=== PATIENT | female | born 1965 | race Hispanic/Latino ===

== ENCOUNTER 2016-11-08 08:39 | Emergency (ER) | payer OTHER ==
[2016-11-08 08:48] VITALS: BP 157/102; PULSE 109; TEMP 97; O2SAT 99
[2016-11-08 08:49] VITALS: BMI 22.6
[2016-11-08] MEDS ORDERED: Sodium Chloride 0.9% 1,000 ML IV STA (09:13)
--- NOTE | 2016-11-08 09:26 | ED PDOC ---
Hyperglycemia/Hypoglycemia Time Seen by Provider: 11/08/16 09:08 Chief Complaint (Nursing): High Blood Sugar Chief Complaint (Provider): High Blood Sugar History Per: Patient History/Exam Limitations: no limitations Onset/Duration Of Symptoms: Hrs (prior to arrival) Current Symptoms Are (Timing): Still Present : The patient does not have any of the infectious symptoms listed except for those marked. Additional Complaint(s): 51 y/o female presents to the emergency department after sent from the same day prior to having colonoscopy which was not completed because patient had elevated blood sugar. Patient is asymptomatic. Denies nausea, vomiting, or dizziness. PMD: Dr. Aurelio Armstrong MD Past Medical History Reviewed: Historical Data, Nursing Documentation, Vital Signs Vital Signs: Last Vital Signs Temp 97 F L 11/08/16 08:47 Pulse 109 H 11/08/16 08:47 Resp BP 157/102 H 11/08/16 08:47 Pulse Ox 99 11/08/16 08:47 - Medical History PMH: Back Problems (DJD), Diabetes - Surgical History Surgical History: - Family History Family History: States: Unknown Family Hx - Social History Current smoker - smoking cessation education provided: No Alcohol: None Drugs: Denies - Immunization History Hx Tetanus Toxoid Vaccination: No Hx Influenza Vaccination: No Hx Pneumococcal Vaccination: No - Home Medications Home Medications: Ambulatory Orders Medication Instructions Recorded Glipizide 10 mg PO DAILY 03/01/15 Pioglitazone HCl 45 mg PO DAILY 03/01/15 Metformin Hydrochloride/Prabha 1 tab PO BID 03/17/15 [Janumet 1000 mg-50 mg] Pregabalin [Lyrica] 50 mg PO BID 03/17/15 - Allergies Allergies/Adverse Reactions: Allergies Allergy/AdvReac Type Severity Reaction Status Date / Time No Known Allergies Allergy Verified 04/24/15 09:36 Review of Systems ROS Statement: Except As Marked, All Systems Reviewed And Found Negative Constitutional: Positive for: Other (Asymptomatic) Gastrointestinal: Negative for: Nausea, Vomiting Neurological: Negative for: Dizziness Physical Exam - Reviewed Nursing Documentation Reviewed: Yes Vital Signs Reviewed: Yes - Physical Exam Appears: Positive for: Non-toxic, No Acute Distress Head Exam: Positive for: ATRAUMATIC, NORMOCEPHALIC Skin: Positive for: Normal Color, Warm, Dry Neck: Positive for: Normal, Supple Cardiovascular/Chest: Positive for: Regular Rate, Rhythm. Negative for: Murmur Respiratory: Positive for: Normal Breath Sounds. Negative for: Accessory Muscle Use, Wheezing, Respiratory Distress Gastrointestinal/Abdominal: Positive for: Normal Exam, Soft. Negative for: Tenderness Extremity: Positive for: Normal ROM. Negative for: Pedal Edema Neurologic/Psych: Positive for: Alert, Oriented - Laboratory Results Result Diagrams: 11/08/16 09:30 11/08/16 09:30 - ECG O2 Sat by Pulse Oximetry: 99 (RA) Pulse Ox Interpretation: Normal Medical Decision Making Medical Decision Making: Time: 9:08 Initial impression: Elevated blood sugar Initial plan: --COMP Metabolic Panel --CBC w/ differential --Sodium Chloride 1,000 ml IV 200 mls/hr --Revaluation Scribe Attestation: Documented by Rita Jensen, acting as a scribe for Luis Alberto You MD. Provider Scribe Attestation: All medical record entries made by the Scribe were at my direction and personally dictated by me. I have reviewed the chart and agree that the record accurately reflects my personal performance of the history, physical exam, medical decision making, and the department course for this patient. I have also personally directed, reviewed, and agree with the discharge instructions and disposition. Disposition - Clinical Impression Clinical Impression: Hyperglycemia - Patient ED Disposition Is Patient to be Admitted: No Counseled Patient/Family Regarding: Studies Performed, Diagnosis, Need For Followup - Disposition Disposition: Routine/Home Disposition Time: 13:26 Condition: FAIR Instructions: Diabetes Mellitus Type 2 in Adults (ED)
[2016-11-08 09:43] LABS: BASO % 0.8 % (0.0-2.0); EOS # 0.1 K/uL (0.0-0.7); EOS % 2.2 % (0.0-4.0); HEMATOCRIT 39.4 % (34.0-47.0); LYMPH # 1.7 K/uL (1.0-4.3); LYMPH % 31.5 % (20.0-40.0); MEAN CELL VOLUME 85.5 fl (81.0-99.0); MEAN CORPUSCULAR HEMOGLOBIN 29.4 pg (27.0-31.0); MEAN CORPUSCULAR HGB CONC 34.4 g/dL (33.0-37.0); MEAN PLATELET VOLUME 8.4 fl (7.2-11.7); MONO # 0.3 K/uL (0.0-0.8); MONO % 5.8 % (0.0-10.0); NEUT # 3.3 K/uL (1.8-7.0); NEUT % 59.7 % (50.0-75.0); NRBC % 0.1 % (0.0-0.0); RED CELL DISTRIBUTION WIDTH 13.3 % (11.5-14.5); WHITE BLOOD COUNT 5.6 K/uL (4.8-10.8)
[2016-11-08 09:54] LABS: CHLORIDE 102 mmol/L (98-107); SODIUM 139 mmol/l (132-148)
[2016-11-08 09:56] LABS: GFR AFRICAN-AMERICAN > 60
[2016-11-08 09:57] LABS: ALB/GLOB RATIO 1.1 (1.0-2.1); ALKALINE PHOSPHATASE 99 U/L (38-126); ALT/SGPT 26 U/L (9-52); AST/SGOT 26 U/L (14-36); BILIRUBIN,TOTAL 0.7 mg/dl (0.2-1.3); BLOOD UREA NITROGEN 11 mg/dl (7-17); CARBON DIOXIDE 24 mmol/L (22-30); GLUCOSE,RANDOM 339 mg/dL (65-105); TOTAL PROTEIN 8.2 G/DL (6.3-8.2)
[2016-11-08 09:58] LABS: CALCIUM 9.3 mg/dL (8.4-10.2)
[2016-11-08] MEDS ORDERED: Insulin Regular 100 units/ml SC STA (11:12)
[2016-11-08] MEDS ORDERED: Insulin Regular 100 units/ml ONE (11:12)
== END 2016-11-08 13:35 | disposition home or self-care (01) ==
LOC: H.ER 08:39
DX: E11.65 Type 2 diabetes mellitus with hyperglycemia (principal)

== ENCOUNTER 2016-11-08 14:44 | Day surgery (SDC) | payer OTHER ==
[2016-11-08 08:49] VITALS: BMI 22.6
[2016-11-08] MEDS ORDERED: Propofol 10 mg/ml Inj (20 ML) ONE (14:58)
[2016-11-08] MEDS ORDERED: Lactated Ringer's 500 ML IV ONE (14:59)
[2016-11-08 15:21] VITALS: TEMP 98
[2016-11-08 15:33] VITALS: BP 121/72; PULSE 89; RESP 22; O2SAT 100
== END 2016-11-08 15:44 | disposition home or self-care (01) ==
LOC: H.ENDO 14:44
PROVIDERS: ATTEND Family Medicine
DX: Z12.11 Encounter for screening for malignant neoplasm of colon (principal); E78.5 Hyperlipidemia, unspecified; E11.40 Type 2 diabetes mellitus with diabetic neuropathy, unspecified; K64.8 Other hemorrhoids